=== PATIENT | female | born 1975 | race Hispanic/Latino ===

== ENCOUNTER → 2018-08-29 | Outpatient (CLI) | payer OTHER ==
[~2018-08-29] MED LIST: BENTYL10 MG PO; CLONAZEPAM0.5 MG PO; CYCLOBENZAPRINE10 MG PO; HYDROCODON-ACE1 EAC9 PO; LEVOTHYROXINE100 MCG PO; LEVSIN0.125 MG PO; PANTOPRAZOLE SO40 MG PO; PROMETHAZINE HC25 M1 PO; ULTRAM 50MG50 MG PO
--- NOTE | 2018-08-29 13:52 | Diagnostic Imaging Report ---
Lumbar spine complete CPT code: 62619 Indication: Low back pain, fall Technique: A.P., lateral and bilateral oblique views of the lumbar spine obtained. Comparison: None. Findings: There are five non rib bearing vertebral bodies. Mild dextroscoliosis with the apex at L1/2. No rotational component. The transverse processes are intact. Alignment is maintained on lateral image. The vertebral body heights are well maintained. There is diffuse disc space narrowing and endplate osteophytic lipping throughout. There is facet arthropathy at the lower levels. No pars defects. The SI joints are patent with sclerosis of the right SI joint. The sacrum is intact. The spinous processes are normally aligned. There is no evidence of subluxation. The bowel gas pattern is unremarkable. Cholecystectomy clips are in the right upper quadrant. IMPRESSION: 1. No acute traumatic pathology 2. Degenerative changes as described above. 3. Mild dextroscoliosis may be positional. Signed by: Dr. Thaddeus Acevedo MD on 08/29/2018 1:49 PM
== END ==
LOC: RAD 11:47
PROVIDERS: ATTEND Family Medicine
DX: M54.5 Low back pain (principal)
CPT/HCPCS: 72110

== ENCOUNTER → 2021-02-17 | Day surgery (SDC) | payer BC, OTHER ==
[~2021-02-17] MED LIST changes: +AMLODIPINE BESY10 MG PO; +CRESTOR10 MG PO; +GABAPENTIN300 MG PO; +INVOKAMET 50-11 EACH PO; +KEPPRA750 MG PO; +LIDOCAINE HCL 2% LOCAL INJ 5 ML SDV VIAL INJ ONE; +MIDAZOLAM HCL 2 MG/2 ML VIAL ONE; +MOBIC7.5 MG PO; +OZEMPIC1 MG/0.75 SC; +PAROXETINE HCL20 MG PO; +PHENTERMINE H37.5 M1 PO; +POVIDONE IODINE 0.05% 0.05 % ML PO ONE; +PROPOFOL IV EMULSION 10 MG/ML 20 ML VIAL ONE; +VITAMIN B122500 MCG PO; +VITAMIN D PO
[2021-02-17 07:52] VITALS: BP 110/60
== END | disposition home or self-care (01) ==
LOC: ENDO 09:22
PROVIDERS: ATTEND Surgery
DX: K21.9 Gastro-esophageal reflux disease without esophagitis (principal); K44.9 Diaphragmatic hernia without obstruction or gangrene; K29.70 Gastritis, unspecified, without bleeding; E66.01 Morbid (severe) obesity due to excess calories; E11.9 Type 2 diabetes mellitus without complications; G40.909 Epilepsy, unspecified, not intractable, without status epilepticus; G47.33 Obstructive sleep apnea (adult) (pediatric); I10 Essential (primary) hypertension; F32.9 Major depressive disorder, single episode, unspecified; Z01.810 Encounter for preprocedural cardiovascular examination; Z01.812 Encounter for preprocedural laboratory examination; Z20.822 Contact with and (suspected) exposure to COVID-19; Z79.84 Long term (current) use of oral hypoglycemic drugs
CPT/HCPCS: 43239; 93005; J2001; J2250; J2704; U0002; 43235

== ENCOUNTER → 2024-06-22 | Day surgery (SDC) | payer BC ==
[2024-06-14 12:05] LABS: ANION GAP 11.4 mmol/L (8-16); CALCIUM 9.3 mg/dL (8.4-10.2); CREATININE, SERUM 0.71 mg/dL (0.57-1.11); POTASSIUM 4.4 mmol/L (3.5-5.1)
[~2024-06-22] MED LIST changes: +ABILIFY5 MG PO; +ACETAMINOPHEN 1000 MG/100 ML IV ONE; +EPHEDRINE SULFATE INJ 50 MG/ML VIAL ONE; +FENTANYL CITRATE/PF 100MCG/2 ML INJ ONE; +HYDROCODON-ACE1 EA12 PO; +HYDROCODONE/APAP 5MG-325MG TAB ONE; +KETOROLAC TROMETHAMINE 30 MG/ML VIAL ONE; +LIOTHYRONINE SO5 MCG PO; +MELATONIN 1 MG1 EACH; +METOCLOPRAMIDE HCL 10 MG/2ML VIAL ONE; +Morphine 10mg syringe 10 MG/ML INJ ONE; +OMEPRAZOLE40 MG PO; +ONDANSETRON HCL INJ 2MG/ML 2ML 2 MG/ML VIAL ONE; +PHENYLEPHRINE HCL 1% 10 MG/ML VIAL ONE; -POVIDONE IODINE 0.05% 0.05 % ML PO ONE; +SEVOFLURANE INHAL SOLN 250 ML PEN BTL ONE; +SUCCINYLCHOLINE CHLORIDE 20 MG/ML 10ML VIAL ONE; +SYNJARDY 12.5-1 EACH PO; +TRANEXAMIC ACID 1,000 MG/10 ML ML ONE; +TRANEXAMIC ACID 10 ML ONE
[2024-06-22] MEDS: LACTATED RINGER'S 1,000 ML ONE (06:10)
[2024-06-22] MEDS: MEPERIDINE HCL INJ 25 MG/ML VIAL ONE (12:00)
[2024-06-22] MEDS: HYDROCODONE/APAP 5MG-325MG TAB PO ONE (12:30)
[2024-06-22 13:00] VITALS: BP 134/80; PULSE 74; RESP 18; O2SAT 99
== END | disposition home or self-care (01) ==
LOC: OR 05:44
PROVIDERS: ATTEND Plastic Surgery
DX: N62 Hypertrophy of breast (principal); R92.0 Mammographic microcalcification found on diagnostic imaging of breast; L90.5 Scar conditions and fibrosis of skin; G47.33 Obstructive sleep apnea (adult) (pediatric); E78.5 Hyperlipidemia, unspecified; E11.9 Type 2 diabetes mellitus without complications; E03.9 Hypothyroidism, unspecified; G40.909 Epilepsy, unspecified, not intractable, without status epilepticus; F41.9 Anxiety disorder, unspecified; F32.A Depression, unspecified; Z01.810 Encounter for preprocedural cardiovascular examination; Z01.812 Encounter for preprocedural laboratory examination; Z79.84 Long term (current) use of oral hypoglycemic drugs; Z79.85 Long-term (current) use of injectable non-insulin antidiabetic drugs; Z79.1 Long term (current) use of non-steroidal anti-inflammatories (NSAID); Z79.899 Other long term (current) drug therapy
CPT/HCPCS: 19318; 36415; 80048; 88305; 93005; J0131; J0330; J0690; J1885; J2001; J2175; J2270; J2371; J2405; J2704; J2765; J3010; J7121; J2250